=== PATIENT | male | born 1980 | race Caucasian/White ===

== ENCOUNTER 2019-03-06 07:20 | Day surgery (SDC) | payer BC ==
[2019-03-01 13:01] VITALS: BMI 46.1
[~2019-03-06 07:20] MED LIST: LACTATED RINGERS 1,000 ML IV SCH; LIDOCAINE 1% 20 ML VIAL (10MG/ML) FOR IV START INTRADERMA PRN
--- NOTE | 2019-03-06 07:34 | P.GSHP ---
History of Present Illness H&P Date: 03/06/19 CHIEF COMPLAINT: Rectal bleeding HISTORY OF PRESENT ILLNESS: The patient is a 39-year-old male who presents with rectal bleeding. Lower endoscopy was offered for further evaluation and management. PAST MEDICAL HISTORY: Please see list. PAST SURGICAL HISTORY: Please see list. MEDICATIONS: Please see list. ALLERGIES: Please see list. SOCIAL HISTORY: No illicit drug use FAMILY HISTORY: No reports of Crohn disease or ulcerative colitis. REVIEW OF ORGAN SYSTEMS: CONSTITUTIONAL: No reports of fevers or chills. PHYSICAL EXAM: VITAL SIGNS: Stable GENERAL: Well-developed pleasant in no acute distress. HEENT: No scleral icterus. Extraocular movements grossly intact. Moist buccal mucosa. NECK: Supple without lymphadenopathy. CHEST: Unlabored respirations. Equal bilateral excursions. CARDIOVASCULAR: Regular rate and rhythm. Distal 2+ pulses. ABDOMEN: Soft, nontender, nondistended. MUSCULOSKELETAL: No clubbing, cyanosis, or edema. ASSESSMENT: 1. Rectal bleeding PLAN: 1. Recommend proceeding with a lower endoscopy Past Medical History Additional Past Medical History / Comment(s): HX ANAL FISSURE AND HEMORRHOIDS History of Any Multi-Drug Resistant Organisms: None Reported Past Surgical History: Orthopedic Surgery Additional Past Surgical History / Comment(s): ANAL FISSURE SX. EGD. BILAT KNEE SCOPES Past Anesthesia/Blood Transfusion Reactions: No Reported Reaction Smoking Status: Current every day smoker - Past Family History Mother History Unknown: Yes Medications and Allergies Home Medications Medication Instructions Recorded Confirmed Type Polyethylene Glycol 3350 [Miralax] 17 gm PO DAILY 03/01/19 03/01/19 History Allergies Allergy/AdvReac Type Severity Reaction Status Date / Time No Known Allergies Allergy Verified 03/01/19 12:55
[2019-03-06 07:37] VITALS: TEMP 97.8
[2019-03-06] MEDS ORDERED: LACTATED RINGERS 1,000 ML IV ONE (07:37)
[2019-03-06] MEDS ORDERED: PROPOFOL 10 MG/ML 20 ML VIAL IV ONE (07:54)
[2019-03-06] MEDS ORDERED: LIDOCAINE 1% INJ 10MG/ML (20 ML MDV) ONE (07:54)
[2019-03-06 08:19] VITALS: RESP 16
--- NOTE | 2019-03-06 08:19 | P.PCN ---
Date of Procedure: 03/06/19 Description of Procedure: PREOPERATIVE DIAGNOSIS: Rectal bleeding History of anal fissures POSTOPERATIVE DIAGNOSIS: Rectal bleeding History of anal fissures Colitis at ascending colon OPERATION: Colonoscopy to the ileocecal valve and appendiceal orifice. Colonoscopy with cold forceps biopsies ascending colon SURGEON: Jackie Hoffmann MD. ANESTHESIA: MAC. INDICATIONS: The patient is a 39-year-old male who presents with rectal bleeding. Benefits and risks were described and informed consent was obtained. DESCRIPTION OF PROCEDURE: The patient had undergone Suprep. He had been brought into the operating room and laid in the left lateral decubitus position. After adequate intravenous sedation, the rectum was examined with 2% lidocaine jelly. External hemorrhoids were encountered. Retained staple from stapled hemorrhoidectomy identified with small anal fissure. The rectal tone was within normal limits. No lesions were palpated in the rectal vault. An Olympus colonoscope was advanced until the ileocecal valve and appendiceal orifice were clearly viewed. The prep was excellent with clear visualization of the mucosal folds. The scope was removed with visualization of each mucosal fold. No scattered diverticulosis was encountered. No colonic polyps were found. At ascending colon proximal to the hepatic flexure patch of hyperemia was identified and biopsied with cold forceps biopsies. Retroflexion of the scope demonstrated grade 1 internal hemorrhoids without active bleeding or inflammation. The colon was desufflated. The patient had tolerated the procedure well. Withdrawal time was over 6 minutes. FINDINGS: Aronchick preparation quality scale 1 (1-5) Internal hemorrhoids, grade 1 Small anal skin tags/external hemorrhoids from stapled hemorrhoidectomy At ascending colon proximal to the hepatic flexure patch of hyperemia was identified and biopsied with cold forceps biopsies. No arteriovenous malformations. No adenomatous polyps. RECOMMENDATIONS: Lower endoscopy as needed Plan - Discharge Summary Discharge Rx Participant: No New Discharge Prescriptions: No Action Polyethylene Glycol 3350 [Miralax] 17 gm PO DAILY Discharge Medication List Polyethylene Glycol 3350 [Miralax] 17 gm PO DAILY 03/01/19 [History] Follow up Appointment(s)/Referral(s): Jackie Hoffmann MD [STAFF PHYSICIAN] - 03/14/19 Patient Instructions/Handouts: Microscopic Colitis (DC) Discharge Disposition: HOME SELF-CARE
[2019-03-06 08:32] VITALS: BP 112/76; PULSE 60
== END 2019-03-06 09:00 | disposition home or self-care (01) ==
LOC: ORWHC2ENDO 07:20
PROVIDERS: ATTEND Surgery Plastic and Reconstructive Surgery
DX: K62.5 Hemorrhage of anus and rectum (principal); Z87.19 Personal history of other diseases of the digestive system; K64.4 Residual hemorrhoidal skin tags; K64.0 First degree hemorrhoids; F17.200 Nicotine dependence, unspecified, uncomplicated
CPT/HCPCS: 88305; 45380; J2001; J2704

== ENCOUNTER → 2020-09-01 | Outpatient (CLI) | payer BC ==
--- NOTE | 2020-09-01 12:32 | US ---
EXAMINATION TYPE: US abdomen complete DATE OF EXAM: 09/01/2020 COMPARISON: NONE CLINICAL HISTORY: R11.0 nausea, R10.11,R10.30. EXAM MEASUREMENTS: Liver Length: 16.6 cm Gallbladder Wall: 0.3 cm CBD: 0.5 cm Spleen: 15.0 cm Right Kidney: 13.0 x 6.4 x 8.5 cm Left Kidney: 13.6 x 6.9 x 6.4 cm Pancreas: visualized portions wnl Liver: difficult to penetrate Gallbladder: No stones seen Evidence for sonographic Daugherty's sign: No CBD: wnl Spleen: wnl Right Kidney: No hydronephrosis or masses seen Left Kidney: No hydronephrosis or masses seen Upper IVC: wnl Abd Aorta: bifurcation not seen due to bowel gas, otherwise wnl. IMPRESSION: 1. Mild fatty infiltration liver. 2. No acute ultrasound abnormalities in the abdomen
== END | disposition home or self-care (01) ==
LOC: RADUSWWP 10:13
PROVIDERS: ATTEND Family Medicine
DX: K76.0 Fatty (change of) liver, not elsewhere classified (principal)
CPT/HCPCS: 76700

== ENCOUNTER → 2020-09-15 | Outpatient (CLI) | payer BC | END | disposition home or self-care (01) | LOC: LABWHC1 12:49 | PROVIDERS: ATTEND Nurse Practitioner | DX: R19.5 Other fecal abnormalities (principal) | CPT/HCPCS: 82656 ==

== ENCOUNTER 2020-10-05 09:10 | Day surgery (SDC) | payer BC ==
[2020-10-01 11:11] VITALS: BMI 55.7
[~2020-10-05 09:10] MED LIST changes: -LIDOCAINE 1% 20 ML VIAL (10MG/ML) FOR IV START INTRADERMA PRN
[2020-10-05 09:30] VITALS: TEMP 97.7
[2020-10-05] MEDS ORDERED: LIDOCAINE 1% (10MG/ML) FOR IV START INTRADERMA ONE (09:39)
[2020-10-05] MEDS ORDERED: LIDOCAINE 1% INJ 10MG/ML (20 ML MDV) ONE (09:55)
[2020-10-05] MEDS ORDERED: KETAMINE 10 MG/ML 20 ML VIAL ONE (09:55)
[2020-10-05] MEDS ORDERED: PROPOFOL 10 MG/ML 20 ML VIAL IV ONE (09:55)
[2020-10-05] MEDS ORDERED: MIDAZOLAM 2 MG/2 ML VIAL ONE (09:55)
[2020-10-05] MEDS ORDERED: fentaNYL (PF) 50 MCG/ML 2 ML AMP ONE (09:55)
--- NOTE | 2020-10-05 10:16 | P.PCN ---
Date of Procedure: 10/05/20 Description of Procedure: BRIEF HISTORY: Patient is a 40-year-old male presenting for outpatient es ophagogastroduodenoscopy for evaluation of epigastric abdominal pain. Patient reports symptoms of a sharp severe epigastric abdominal pain occurring over the past few months. He reports that a trial of Protonix daily didn't improve symptoms that he had no improvement with dicyclomine. PROCEDURE PERFORMED: Esophagogastroduodenoscopy with biopsy. PREOPERATIVE DIAGNOSIS: Epigastric abdominal pain. ESTIMATED BLOOD LOSS: Minimal. IV sedation per anesthesia. PROCEDURE: After informed consent was obtained, the patient was brought into the endoscopy unit. IV sedation was administered by Anesthesia under continuous monitoring. Initially the Olympus GIF-190 video endoscope was inserted into the mouth. Esophagus intubated without any difficulty. It was gradually advanced into the stomach and duodenum and carefully examined. The bulb and the second part of the duodenum appeared normal, with biopsies taken. The scope at this time was withdrawn to the stomach, adequately insufflated with air, and upon careful examination, mucosa of the antrum, body, cardia and the fundus appeared normal, except for some mild punctate erythema in the antrum and body with biopsies taken. There was also a patchy area of severe gastritis with irritation and superficial erosions in the fundus which was biopsied. The scope was then withdrawn into the esophagus. The GE junction was located at 43, with lower esophageal biopsies cm from the incisors. The esophagus appeared normal. There were no erosions or ulcerations seen and the patient tolerated the procedure well. IMPRESSION: 1. Severe gastritis and a patchy area involving the fundus. 2. Mild gastritis antrum and body. 3. Biopsies of the duodenum, antrum, body, fundus and lower esophagus. RECOMMENDATIONS: The findings of this examination were discussed with the patient . Okay to resume diet. Okay to resume medications. Await pathology from biopsies. Recommend continuing Protonix daily and following up in the clinic for results of other tests.
[2020-10-05 10:17] VITALS: RESP 16
[2020-10-05 10:34] VITALS: BP 136/91; PULSE 77
== END 2020-10-05 10:48 | disposition home or self-care (01) ==
LOC: ORWHC2ENDO 09:10
PROVIDERS: ATTEND Internal Medicine
DX: K21.00 Gastro-esophageal reflux disease with esophagitis, without bleeding (principal); K29.70 Gastritis, unspecified, without bleeding; I10 Essential (primary) hypertension; G47.33 Obstructive sleep apnea (adult) (pediatric); F17.290 Nicotine dependence, other tobacco product, uncomplicated; Z79.899 Other long term (current) drug therapy
CPT/HCPCS: 88305; 43239; J2250; J2001; J3010; J2704

== ENCOUNTER → 2020-11-18 | Outpatient (CLI) | payer BC ==
--- NOTE | 2020-11-18 11:39 | XR ---
EXAMINATION TYPE: XR knee complete LT DATE OF EXAM: 11/18/2020 CLINICAL HISTORY: Left knee pain TECHNIQUE: Three views of the left knee are obtained. COMPARISON: None. FINDINGS: There is no acute fracture/dislocation evident in left knee. The tri-compartment joint sp aces appear within normal limits. The overlying soft tissue appears unremarkable. IMPRESSION: There is no acute fracture or dislocation in the left knee.
== END | disposition home or self-care (01) ==
LOC: RADXRYALE 09:53
PROVIDERS: ATTEND Physician Assistant
DX: M25.562 Pain in left knee (principal)

== ENCOUNTER → 2020-12-08 | Outpatient (CLI) | payer BC ==
--- NOTE | 2020-12-08 18:34 | ECHOF ---
Referral Reason:[id number] MEASUREMENTS -------- HEIGHT: 180.3 cm WEIGHT: 181.4 kg BP: IVSd: 1.5 cm (0.6 - 1.1) LVIDd: 4.7 cm (3.9 - 5.3) LVPWd: 1.4 cm (0.6 - 1.1) EDV(Teich): 101 ml IVSs: 1.8 cm LVIDs: 2.6 cm LVPWs: 2.1 cm %IVS Thck: 23 % ESV(Teich): 25 ml EF(Teich): 75 % %FS: 44 % SV(Teich): 76 ml RVIDd: 2.5 cm (< 3.3) IVC: 14.93 mm LALs A4C: 5.1 cm LAAs A4C: 16.7 cm LAESV A-L A4C: 47 ml LAESV MOD A4C: 41 ml LALs A2C: 5.1 cm LAAs A2C: 14.3 cm LAESV A-L A2C: 34 ml LAESV MOD A2C: 32 ml LAESV(A-L): 40 ml LAESV Index (A-L): 14.12 ml/m Ao Diam: 4.1 cm (2.0 - 3.7) LA Diam: 3.0 cm (2.7 - 3.8) AV Cusp: 1.9 cm (1.5 - 2.6) EPSS: 0.5 cm MV E Jalen: 0.92 m/s MV DecT: 191 ms MV Dec [place]: 4.8 m/s MV A Jalen: 0.83 m/s MV E/A Ratio: 1.11 MV PHT: 55 ms MR Vmax: 1.11 m/s MR maxP.94 mmHg AV Vmax: 1.09 m/s AV maxP.71 mmHg TR Vmax: 1.79 m/s TR maxP.86 mmHg RAP: 5.00 mmHg RVSP: 17.86 mmHg MV EF SLOPE: 92.04 mm/s (70 - 150) MV EXCURSION: 11.80 mm (> 18.000) FINDINGS -------- This was a technically adequate study. The left ventricular size is normal. There is moderate concentric left ventricular hypertrophy. O verall left ventricular systolic function is normal with, an EF between 55 - 60 %. The diastolic fi lling pattern is normal for the age of the patient 11.77. The right ventricle is normal in size. The left atrial size is normal. Normal LA size by volume 22+/-6 ml/m2. The right atrial size is normal. Unable to visualize the septum. The aortic valve is trileaflet and appears structurally normal. The mitral valve is normal. There is trace mitral regurgitation. The tricuspid valve appears structurally normal. Trace tricuspid regurgitation present. Right michael tricular systolic pressure is normal at < 35 mmHg. There is no pulmonic regurgitation present. The aortic root is dilated measuring 4.1 cm. Normal inferior vena cava with normal inspiratory collapse consistent with estimated right atrial pre ssure of 5 mmHg. There is no pericardial effusion. CONCLUSIONS -------- 1. The left ventricular size is normal. 2. There is moderate concentric left ventricular hypertrophy. 3. Overall left ventricular systolic function is normal with, an EF between 55 - 60 %. 4. The diastolic filling pattern is normal for the age of the patient 11.77 5. There is trace mitral regurgitation. 6. Trace tricuspid regurgitation present. 7. The aortic root is dilated measuring 4.1 cm. 8. There is no pericardial effusion. [employer]: Erinn Gross, [facility]
== END | disposition home or self-care (01) ==
LOC: RADECHMAIN 12:05
PROVIDERS: ATTEND Family Medicine
DX: I51.7 Cardiomegaly (principal); I34.0 Nonrheumatic mitral (valve) insufficiency; R60.0 Localized edema
CPT/HCPCS: 93306

== ENCOUNTER → 2021-01-01 | Outpatient (CLI) | payer BC ==
--- NOTE | 2021-01-01 16:44 | US ---
EXAMINATION TYPE: US scrotum with doppler. Grayscale and color Doppler Duplex imaging performed of juventino dockery scrotum. DATE OF EXAM: 01/01/2021 COMPARISON: NONE CLINICAL HISTORY: N508.12 LT TESTICULAR PAIN,N45.1 EPIDIDYMITIS. Left testicular pain noted x 1 week. Does heavy lifting at work. EXAM MEASUREMENTS: TESTICLES: Right Testicle: 4.6 x 2.6 x 2.3 cm Left Testicle: 4.7 x 2.5 x 1.8 cm EPIDIDYMIS HEAD: Right Epididymis: 0.8 x 1.6 x 1.4 cm Left Epididymis: 1.2 x 1.2 x 0.8 cm PW Doppler and Color Flow assessment was performed to assess for testicular vascularity; good bilater al color flow and waveforms are seen. There is no evidence of testicular torsion. Presence of hydroceles: very small amount of fluid noted seen upper left scrotal sac = 1.5 x 0.3 x 0 .2cm. Presence of varicoceles: no IMPRESSION: 1. Minimal left hydrocele. 2. No torsion.
== END | disposition home or self-care (01) ==
LOC: RADUSWWP 08:15
PROVIDERS: ATTEND Family Medicine
DX: N43.3 Hydrocele, unspecified (principal); N45.1 Epididymitis
CPT/HCPCS: 76870; 93975

== ENCOUNTER → 2021-01-13 | Outpatient (CLI) | payer BC ==
--- NOTE | 2021-01-14 05:16 | MR ---
EXAMINATION TYPE: MR knee LT wo con DATE OF EXAM: 01/13/2021 COMPARISON: None HISTORY: Left knee pain x 5 mos, no trauma. Multiplanar multiecho imaging of the left knee with no contrast. There is a large knee joint effusion. The anterior and posterior cruciate ligaments are intact. The p atella is intact. The lateral collateral ligament appears intact. There is some thinning and increased signal in the an terior aspect of the medial collateral ligament. There is mild increased signal in the medial tibial condyle that measures 2 cm and consistent with a bone bruise. There is vertical tear through the posterior horn medial meniscus. There is some medial displacement of the medial meniscus. There is some small intrasubstance tear of the posterior horn of the lateral meniscus. There is a tea r on the superior surface of the anterior horn lateral meniscus. There is osteoarthritic moderate rupa rowing of the medial joint space. There is significant loss of articular cartilage. There is no evide nce of a fracture. IMPRESSION: Moderate knee joint effusion. Osteoarthritic narrowing of the medial joint space with evidence of a m ild bone bruise in the medial tibial condyle. There is extensive horizontal and vertical tear of the posterior horn medial meniscus. There is also intrasubstance tear posterior horn lateral meniscus and tear on the superior surface of the anterior horn lateral meniscus. There is evidence for partial te ar of the medial collateral ligament.
== END | disposition home or self-care (01) ==
LOC: RADMRIMAIN 18:37
PROVIDERS: ATTEND Physician Assistant Medical
DX: S83.282A Other tear of lateral meniscus, current injury, left knee, initial encounter (principal); M25.462 Effusion, left knee; M17.12 Unilateral primary osteoarthritis, left knee; X58.XXXA Exposure to other specified factors, initial encounter

== ENCOUNTER → 2021-07-07 | Outpatient (CLI) | payer BC ==
--- NOTE | 2021-07-07 14:46 | XR ---
EXAMINATION TYPE: XR lumbosacral spine min 4V DATE OF EXAM: 07/07/2021 CLINICAL HISTORY: pain COMPARISON: NONE TECHNIQUE: Frontal, lateral, and oblique images of the lumbar spine are obtained. FINDINGS: There are 5 lumbar type vertebral bodies identified. The lumbar spine shows satisfactory alignment without evidence of acute fracture or dislocation. Vertebral body heights are within normal limits. Disc spaces are well preserved. The overlying soft tissue appears unremarkable. IMPRESSION: No acute fracture or dislocation is seen in the lumbar spine.ICD 10 NO FRACTURE, INITIAL EVALUATION
== END | disposition home or self-care (01) ==
LOC: RADXRYALE 14:18
PROVIDERS: ATTEND Physician Assistant Medical
DX: M54.42 Lumbago with sciatica, left side (principal)
CPT/HCPCS: 72110

== ENCOUNTER → 2022-02-28 | Outpatient (CLI) | payer BC ==
--- NOTE | 2022-02-28 10:02 | FL ---
Exam Date: 02/28/2022 9:27 AM. Modified barium swallow for dysphagia. Consistencies administered: Various consistency of barium. Fluoro time: No images were sent to PACS. Please see speech pathology report.
== END | disposition home or self-care (01) ==
LOC: RADUSWWP 08:52
PROVIDERS: ATTEND Family Medicine
DX: R13.10 Dysphagia, unspecified (principal); K21.00 Gastro-esophageal reflux disease with esophagitis, without bleeding
CPT/HCPCS: 74230

== ENCOUNTER → 2022-02-28 | Outpatient (CLI) | payer BC ==
[2022-02-28 13:26] VITALS: BP 157/97; PULSE 72; RESP 18
--- NOTE | 2022-02-28 15:42 | P.PAINPG ---
PQRS Measure Charge Sheet Comment: HISTORY OF PRESENT ILLNESS: 42 yr old male as a referral from Dr. Alexander presents today w severe and chronic LBP secondary to DDD, spondylosis, facet arthropathy without myelopathy for evaluation. Pt states his pain level is currently at 3/10 in intensity but escalates as high as 8/10 w twisting/ bending. Pain is constant, sharp in character in the lower lumbar spine w burning radiating pain towards the LLE. Pain is alleviated w meds (Tylenol, Naproxen), ice daily, PT which ended Dec 2021, home exercise regimen as tolerated, stretching daily, repositioning and rest. PMH: Hemorrhoids PSH: EGD/ Colonoscopy (2019), BL Knee Scopes SH: Daily tobacco user, No ETOH abuse, No illicit drug use. FH: Non contributory All: NKDA Meds: See list REVIEW OF ORGAN SYSTEMS: CONSTITUTIONAL: No fevers or chills. No recent weight loss. NEUROLOGICAL: + numbness and tingling along the distal extremities. No seizure disorders or headaches. MUSCULOSKELETAL: + pain PSYCHIATRIC: Denies current depression or suicidal thoughts. Physical Examinations : Constitutional : Cooperative , not in acute distress . Neurologic : Cranial nerve II to XII intact. No focal neurological deficits. Psychiatric : alert & oriented x 3. Matching mood & appropriate affect. Judgment & insight intact. Musculoskeletal : Cervical Spine Motor strength in the deltoid and biceps: Normal right side. Normal Left side Motor strength biceps and the wrist extensors: Normal right side . Normal left side Motor strength in the triceps muscle: Normal right side. Normal left side Deep tendon reflexes: Normal at the biceps. Normal at Brachioradialis. Normal at triceps Vertebral body tenderness to deep palpation over Cervical facet loading test: positive bilaterally Spurling test: positive bilaterally Neck distraction test: positive bilaterally Roxi sign: positive bilaterally Lumbar spine Motor strength lower extremities ,thigh and legs 5/5 Right side , 5/5 Left side Deep tendon reflexes : Normal Knee Jerk. Normal Ankle Jerk Vertebral body tenderness over L4 Lumbar facet Loading Test: positive Right / positive Left Range of motion of the lumbar spine Flexion 30 degrees, extension 10 degrees Straight Leg Raise test: Left/ Right positive at degree Blanca test: positive right / positive left. Severe tenderness over the Sacroiliac joint on the Right / Left sides Gaenslen test: positive bilaterally Seated flexion test: positive bilaterally. Sacral spine : Severe tenderness over the Sacroiliac joint: right side / left side Range of motion: Flexion of the lumbar spine <60 degrees Range of motion: Extension of the lumbar spine <20 degrees Gaenslen's Test positive Rich's Test positive Blanca test: positive right side / left side Thigh Thrust Test Sacral Thrust Test Imaging: MRI without contrast of the lumbar spine from 07/17/21 reviewed Assessment/ Plan : Lumbar DDD, lumbar spondylosis Recommendation of CARSON L4-L5. May need a series of injections, up to 3 within a 6 mo period, for optimal pain relief. Risks, benefits of procedure discussed and patient verbalized understanding. Denies aspirin or anti- coagulant use or medical history of diabetes. Protocol for discontinuation/ continuation of medications jayme procedure discussed. All questions answered. I have spent greater than 30 minutes on patient care today. Dr Salazar was available by phone for the evaluation of this patient. The time was used to review the medical records including relevant urine studies and Prescription history (MAPs), review of the available imaging, evaluation and examination of the patient, coordination of care with the medical staff and if applicable referring physicians, as well as creation of the medical record PQRS Narrative: Smoking Status Current every day smoker Home Medications: Ambulatory Orders Pantoprazole Sodium 40 mg PO DAILY 10/01/20 Acetaminophen [Tylenol Extra Strength] 500 mg PO Q12HR PRN 02/28/22 Naproxen Sodium [Naproxen Sodium ER] 500 mg PO DAILY 02/28/22 Controlled Substance Measures - Controlled Substance Measures Is patient prescribed a controlled substance at discharge?: No
== END | disposition home or self-care (01) ==
LOC: PNWHC3 12:59
PROVIDERS: ATTEND Specialist
DX: M47.896 Other spondylosis, lumbar region (principal); M51.36 Other intervertebral disc degeneration, lumbar region
CPT/HCPCS: 99211

== ENCOUNTER 2022-03-29 05:58 | Day surgery (SDC) | payer BC ==
[2022-03-29] MEDS ORDERED: LACTATED RINGERS 1,000 ML IV SCH (06:07)
[2022-03-29] MEDS ORDERED: LIDOCAINE 1% (10MG/ML) FOR IV START INTRADERMA PRN (06:07)
[2022-03-29 06:41] VITALS: TEMP 97.8
[2022-03-29] MEDS ORDERED: methylPREDNISolone ACETATE 80 MG/ML 1 ML VIAL ONE (07:05)
[2022-03-29] MEDS ORDERED: IOPAMIDOL M200 10 ML VIAL ONE (07:05)
--- NOTE | 2022-03-29 07:19 | P.PCN ---
Date of Procedure: 03/29/22 Procedure(s) Performed: PREOPERATIVE DIAGNOSIS: 1- Lumbar Degenerative Disc Diseases 2-Lumbar spondylosis with Facet arthropathy without myelopathy. 3-lumbar radiculopathy POSTOPERATIVE DIAGNOSIS: Same as preop diagnosis. PROCEDURE 1. Lumbar epidural steroid injection under fluoroscopic guidance at the L4-5 level. (Fluoroscopy imaging was available in radiology department) 2. Lumbar epidurogram. ANESTHESIA: Local anesthesia with lidocaine 1% 3 mL only EBL: Minimal PROCEDURE INDICATION: The patient with low back pain and radiculitis symptoms unresponsive to conservative treatment. Fluoroscopy was used to optimize visualization of the needle placement and to maximize safety. PROCEDURE DESCRIPTION / TECHNIQUE: The patient was seen and identified in the preoperative area. Risks, benefits, complications including but not limited to infections ,bleeding ,allergic reaction to the medications ,nerve damage and not complete pain releife , and alternatives were discussed with the patient. The patient agreed to proceed with the procedure and signed the consent. IV was started, and vital signs were stable. Patient was taken to the OR and time out was completed. The patient was placed in the prone position on procedure table and a pillow was placed under the abdomen to reduce lumbar lordosis. The lumbosacral area was prepped and draped in the usual sterile fashion.ere closely monitored during the procedure. Vital signs was monitered during the entire procedure. Using anterior-posterior fluoroscopy, the L4-5 interlaminar space was identified and the skin over this site was marked and then infiltrated with 1% lidocaine subcutaneously. Subsequently, a 18-gauge 6 inches long Tuohy epidural needle was inserted and advanced toward the epidural space using the ``Loss of resistance technique and guided by AP and lateral fluoroscopy. The correct nee dle position in the epidural space was verified with the injection of 2 mL of the water soluble contrast dye Isovue 200 contrast and observing an excellent epidurogram with the epidural spread of the dye, after negative aspiration for blood and CSF and in the absence of paresthesias. Again after negative aspiration, a 6 ml mixture containing 80 mg of Depo-medrol ( Preservetive Free ), and 2 ml of preservative free Normal Saline, and 2 ml of preservative free lidocaine 1% solution was injected and a washout of epidurogram was seen. Needle was withdrawn intact, skin was cleansed, and bandages were applied. COMPLICATIONS: None DISPOSITION / PLANS: The patient was placed in a supine position and transferred to the recovery area in a stable condition for observation. There was no evidence of lower extremity motor or sensory deficit after the procedure. Patient was discharged from the recovery room after meeting discharge criteria. Home discharge instructions were given to the patient by the staff. The patient was reexamined prior to discharge. The patient will schedule a follow up in the clinic in 2-4 weeks.
[2022-03-29 07:36] VITALS: BP 118/79; PULSE 69; RESP 18
--- NOTE | 2022-03-29 09:39 | FL ---
Fluoroscopy INDICATION: Pain FINDINGS: Fluoroscopy time: 2 seconds. Images obtained: One. IMPRESSIONS: 1. Documentation of fluoroscopy.
== END 2022-03-29 07:41 | disposition home or self-care (01) ==
LOC: ORPAIN 05:58
PROVIDERS: ATTEND Specialist
DX: M51.16 Intervertebral disc disorders with radiculopathy, lumbar region (principal); M47.26 Other spondylosis with radiculopathy, lumbar region
CPT/HCPCS: 62323; J1040; Q9966

== ENCOUNTER → 2022-04-13 | Outpatient (CLI) | payer BC ==
[2022-04-13 10:33] VITALS: BP 138/89; PULSE 68; RESP 16; TEMP 98.2
--- NOTE | 2022-04-13 14:41 | P.PAINPG ---
PQRS Measure Charge Sheet Comment: A 42 yr old male with a history of severe and chronic low back pain secondary to lumbar DDD and spondylosis with facet arthropathy without myelopathy presents today for evaluation s/p CARSON L4-5. Pt states he experienced 10% pain relief s/p procedure. Pain level is currently at 9/10 in intensity, constant, localized in the lower lumbar spine, stabbing in character w shooting towards the BLEs, L>R. Pain is provoked by bending and lifting. Pain is alleviated with PT in 2021, heat, home exercise regimen, repositioning and rest. Interventional pain procedures completed include CARSON L4-L5 Patient is currently on Denies Patient denies any side effects of the medication(s), denies excessive drowsiness or sleepiness, denies suicidal ideation and reports that the current pain medication is helping to control the pain and improve activities of daily living. Patient denies any motor or sensory deficits. Patient denies any fever or night sweats, denies any change in the bowel movements or urination. Physical Examination: -Constitutional: Cooperative. Not in acute distress . - Neurologic: Cranial nerve II to XII intact. No focal neurological deficits. - Psychatric: Alert & oriented x 3. Matching mood & appropriate affect. Judgment and insight intact. - Musculoskeletal: Cervical spine: Muscle bulk/ tone/ strength in the bilateral upper extremities normal Vertebral body tenderness to palpation over Spurling test positive Distraction test positive Facet loading test positive Thoracic spine Muscle bulk / tone/ strength in the bilateral paraspinal muscles normal Vertebral body tender to palpation over Facet loading test positive Lumbar spine: Motor bulk/ tone/ strength lower extremities , thigh and legs : 5/5 Deep tendon reflexes : Normal Knee Jerk. Normal Ankle Jerk . Vertebral body tenderness to palpation over Lumbar Facet Loading Test positive TTP over BL L4-L5, L5-S1 facets Straight Leg Raise: positive at 30 degrees right side/ left side Gaenslen's Test positive Sacral spine : Severe tenderness over the Sacroiliac joint: right side / left side Range of motion: Flexion of the lumbar spine <60 degrees Range of motion: Extension of the lumbar spine <20 degrees Gaenslen's Test positive Blanca test: positive right side / left side Thigh Thrust Test Sacral Thrust Test Assessment and plan: Chronic low back pain secondary to lumbar degenerative disc disease, spondylosis with facet arthropathy without myelopathy Recommendation of BL MBB L4-L5, L5-S1 #1. May need a series of injections, up until RFA, for optimal pain relief. Risks, benefits of procedure discussed and pt verbalized understanding. Admits anticoagulant use or medical history of diabetes. Protocol for discontinuation/ continuation of medications jayme procedure discussed. All patient questions answered I have spent less than 30 minutes on patient care today. Dr Salazar was available by phone for the evaluation of this patient. The time was used to review the medical records including relevant urine studies and Prescription history (MAPs), review of the available imaging, evaluation and examination of the patient, coordination of care with the medical staff and if applicable referring physicians, as well as creation of the medical record PQRS Narrative: Smoking Status Current every day smoker Hx Alcohol Use (MH) No Home Medications: Ambulatory Orders No Known Home Medications 03/25/22 Controlled Substance Measures - Controlled Substance Measures Is patient prescribed a controlled substance at discharge?: No
== END ==
LOC: PNWHC3 10:14
PROVIDERS: ATTEND Specialist
DX: M47.816 Spondylosis without myelopathy or radiculopathy, lumbar region (principal); M51.36 Other intervertebral disc degeneration, lumbar region; G89.29 Other chronic pain; Z79.01 Long term (current) use of anticoagulants; E11.9 Type 2 diabetes mellitus without complications; F17.200 Nicotine dependence, unspecified, uncomplicated
CPT/HCPCS: 99211

== ENCOUNTER 2022-05-06 11:46 | Day surgery (SDC) | payer BC ==
[2022-05-05 11:26] VITALS: BMI 51.5
[~2022-05-06 11:46] MED LIST changes: +LIDOCAINE 1% (10MG/ML) FOR IV START INTRADERMA PRN
[2022-05-06 12:15] VITALS: TEMP 98
[2022-05-06] MEDS ORDERED: TRIAMCINOLONE ACETONIDE 40 MG/ML 1 ML VIAL ONE (12:19)
[2022-05-06] MEDS ORDERED: ROPIVACAINE 5 MG/ML 20 ML AMPULE ONE (12:19)
--- NOTE | 2022-05-06 12:39 | P.PCN ---
Date of Procedure: 05/06/22 Description of Procedure: Pre- and Post-operative Diagnosis: Lumbar facet arthropathy, and lumbar spon dylosis without myelopathy. Procedure: #1 Diagnostic Medial Branch Block at bilateral Lumbar 4/5 and #1 diagnostic dorsal ramus block at Lumbar 5/ sacral ala levels (total 4 levels) Surgeon: Bertha Peterson Anesthesia: Local: 1% Lidocaine, IV sedation: None Complications: None EBL: None Specimen removed: None Fluoroscopic image: Saved to patient electronic medical records. Indications for Procedure: The patient is well known to pain clinic for his chronic low back pain management. The lumbar facet loading test was positive wit h a clinical diagnosis of lumbar facet arthropathy. Failed with conservative therapy. Came here for interventional help for better pain relief. Procedure and Findings: The patient was seen and examined. The written informed consent was obtained after explaining the risks, benefits and alternatives of the procedure to the patient. The patient was brought to the procedure room and was placed in the prone position on the operating table table. A pillow was placed under the abdomen to reduce lumbar lordosis. Standard anesthesia monitoring was done through out the procedure. The skin preparation was done with ChloraPrep, and draping was done in usual sterile fashion. Sterile technique was observed throughout the procedure. Under fluoroscopic guidance, right the Lumbar 4, 5 and Sacral ala levels were identified in the AP view. For lumbar L4, and L5 levels the targeting area of superior articular process, and close to the most medial and superior aspect of transverse process identified, marked. 1ml of 1% Lidocaine was used with a 25 gauge needle to achieve adequate local anesthesia of the skin and subcutaneous tissue at each level. A 22 gauge 5 inch spinal needle was placed and advanced targeting area which was close to the most medial and superior aspect of the transverse process. For Lumbar 5/ sacral ala level, fluoroscope was used in the anteroposterior view, and the needle tip was placed at the superior and most medial part of sacral ala close to the superior articular process. A bony contact was obtained and needle tip position was confirmed at anteroposterior view. No paresthesia was noted. A negative aspiration was confirmed. 1 ml solution per level was injected, the block solution containing 5 ml of 0.5% ropivacaine preservative-free solution mixed with 40 MG of Kenalog. The needles were removed intact. Entire procedure repeated on the left side. Lumbar area was cleaned and bandages were applied. Disposition : The patient tolerated the procedure very well. The patient was transferred to the recovery room and remained stable until discharged home. The patient was given detailed discharge instructions for infection, bleeding, and increased pain at the injection site, and was advised to seek immediate medical attention should significant side effects develop. The patient will be scheduled with Pain Clinic within 4 weeks for repeat procedure if it's helpful.
[2022-05-06 12:45] VITALS: RESP 16
[2022-05-06] MEDS ORDERED: LACTATED RINGERS 1,000 ML IV SCH (12:45)
--- NOTE | 2022-05-06 12:49 | FL ---
EXAMINATION TYPE: FL guided pain mgmt statistic DATE OF EXAM: 05/06/2022 CLINICAL HISTORY: Low back pain. TECHNIQUE: Fluoroscopy. COMPARISON: None. FINDINGS: Fluoroscopic guidance was provided during pain relief procedure performed by Dr. Parker . A total of 9 seconds of fluoroscopic time was utilized during the procedure and 4 spot images ar e acquired. Images acquired shows needle localization at several levels in the lumbar spine. IMPRESSION: As Above.
[2022-05-06 12:58] VITALS: BP 114/78; PULSE 79
== END 2022-05-06 13:04 | disposition home or self-care (01) ==
LOC: ORPAIN 11:46
DX: M47.816 Spondylosis without myelopathy or radiculopathy, lumbar region (principal); G89.29 Other chronic pain; F17.200 Nicotine dependence, unspecified, uncomplicated; Z96.653 Presence of artificial knee joint, bilateral
CPT/HCPCS: 64493; 64494; J3301; J2795

== ENCOUNTER → 2022-05-26 | Outpatient (CLI) | payer BC ==
[2022-05-26 11:57] VITALS: BP 159/95; PULSE 69; RESP 18; TEMP 98.4
--- NOTE | 2022-05-26 12:30 | P.PAINPG ---
Subjective Progress Note Date: 05/26/22 Principal diagnosis: Lumbar back pain Mr. Ewing is a 42 -year-old pleasant male came to the [facility] pain clinic for postprocedure evaluation for bilateral lumbar L4-L5, and L5-S1 medial branch block #1. Patient had 100% pain relief for 2 days, later gradually pain is getting more worse on left side compared to right side. After the pain procedure he can able to perform his activities of daily living better, and able to sleep better. Patient describes pain is aching, throbbing, constant type of pain. Pain is radiating to left lower extremity sometimes.. Patient rated pain levels are 6 out of 10 in severity. With the help of medications pain levels are 4-8 out of 10 in severity. Activities making pain worse. Medications, resting, intervention procedures helping in relieving patient's pain. Patient pain some days better than others. Overall activities decreased secondary to pain. Because of the pain sometimes patient is feeling lack of sleep, interest, and energy. Denied any side effects with the medications. Denied any bowel or bladder problems at this time. Patient is not using any walking aids for walking support. Patient denies any suicidal or homicidal ideations intent or plan. Patient denies any auditory or visual hallucinations. Patient denied any red flag symptoms related to pain. Objective - Vital Signs Vital signs: Vital Signs Temp 98.4 F 05/26/22 11:48 Pulse 69 05/26/22 11:48 Resp 18 05/26/22 11:48 BP 159/95 05/26/22 11:48 Pulse Ox 98 05/26/22 11:48 FiO2 Intake & Output 05/25/22 05/26/22 05/26/22 18:59 06:59 18:59 Weight 167.829 kg - Exam General: Well-developed, well-nourished, no acute distress HEENT: Normocephalic, and atraumatic Neck: Supple, no neck swelling Psychiatric: Appropriate mood, and affect NNP: No focal neurological deficits Musculoskeletal: Upper extremity: Normal strength, and range of motion. Sensation grossly intact Lower extremity: Normal strength, and normal range of motion Lumbar spine: Paravertebral tenderness: positive Lumbar facet load test : positive Sacroiliac joint tenderness: Negative Thigh thrust test: Negative Straight leg raising test: Negative [ ] - Constitutional Constitutional Comment(s): 13 point review of symptoms negative except as mentioned in the history of present illness Assessment and Plan Assessment: Lumbar spondylosis without myelopathy Myofascial pain syndrome, and chronic pain syndrome Plan: #1 Diagnoses, prognosis, and multiple treatment options including but not limited to physical therapy, interventional therapy, adjunct medication therapy, narcotic medication, and surgical options were discussed with the patient. And all questions were answered to the patient's satisfaction. #2 treatment plan agreement : Patient was thoroughly discussed regarding the treatment options, alternatives, and importance of exercises as tolerated. Patient clearly understood. #3 Patient was counseled on importance of regular exercise. Patient counseled regarding importance of minimizing the intake of process food, and carbo hydrates. Patient was given information regarding intermittent fasting. #4 investigations: MAPS- reviewed , urine drug test- none #5 diagnostic tests: None #6 consultation : None # 7 interventional procedures: Bilateral lumbar L4-L5, L5-S1 medial branch block #2 . Procedure, complications, alternatives discussed with the patient. #8 medications None from the pain clinic #9 morphine milligrams equivalents dose ( MME) per day: 0 from the pain clinic. # 10 TENS unit's, and percussion massage device #11 disposition: scheduled to follow up with pain clinic in 4 weeks duration. Time with Patient: Less than 30 PQRS Measure Charge Sheet Measure #130: Documentation of Current Meds in Medical Chart: Patient's medications documented in chart Measure #226: Tobacco Use: Screen & Cessation Intervention: Pt not a tobacco user Measure #111: Pneumonia Vaccination: Pneumococcal vaccine NOT administered or previously given Measure #412: Opioid Treatment Agreement: No documentation of signed opioid treatment agreement Measure #408: Opioid Therapy Follow-up Evaluation: Patient had NO f/u eval minimum every 3 months during opioid therapy Measure #317: Preventitive Care & Scrn High Bld Press & F/U: Normal blood pressure, f/u not required Measure #128: Body Mass Index (BMI) Screening & Follow-up: BMI documented ABOVE normal parameters - f/u documented Measure #131: Pain Assessment & Follow-up: Pain positive & plan documented Measure #431: Unhealthy Alcohol Use Preventative Care & Scrn: Patient not identified as an unhealthy alcohol user Mode of Arrival: Ambulatory - Pain Location Bilateral Lower Back Non-Pharmacological Interventions: Heat, Ice, Inactivity, Physical Therapy, Position/Reposition, Sitting, Stretching Pharmacological Interventions: Block, Epidural PQRS Narrative: Smoking Status Current every day smoker Blood Pressure 159/95 Pain Intensity [Bilateral 3 Lower Back] Scale Used Numeric (1 - 10) Hx Alcohol Use (MH) No Home Medications: Ambulatory Orders No Known Home Medications 03/25/22 Controlled Substance Measures - Controlled Substance Measures Is patient prescribed a controlled substance at discharge?: No
== END ==
LOC: PNWHC3 10:14
DX: M47.816 Spondylosis without myelopathy or radiculopathy, lumbar region (principal); M79.10 Myalgia, unspecified site; G89.4 Chronic pain syndrome; F17.200 Nicotine dependence, unspecified, uncomplicated
CPT/HCPCS: 99211

== ENCOUNTER 2022-06-10 11:45 | Day surgery (SDC) | payer BC ==
[2022-06-09 08:28] VITALS: BMI 51.5
[2022-06-10 12:07] VITALS: RESP 16; TEMP 97.9
[2022-06-10] MEDS ORDERED: methylPREDNISolone ACETATE 40 MG/ML 1 ML VIAL ONE (12:24)
[2022-06-10] MEDS ORDERED: ROPIVACAINE 5 MG/ML 20 ML AMPULE ONE (12:24)
--- NOTE | 2022-06-10 12:44 | P.PCN ---
Date of Procedure: 06/10/22 Procedure(s) Performed: PREOPERATIVE DIAGNOSIS : 1- Lumbar spondylosis with Facet Arthropathy without myelopathy . 2- Lumber degenerative disc disease POSTOPERATIVE DIAGNOSIS: 1- Lumbar spondylosis with Facet Arthropathy without myelopathy . 2- Lumber degenerative disc disease PROCEDURE: Diagnostic bilateral L3 , L4 , and L5 medial branch block under fluoroscopy guidance(fluoroscopy images available in the radiology Department ) ( To target the facet joint between bilateral L4-5 , and L5-S1 )# 2nd ANESTHESIA:, Local anesthesia with ropivacaine 0.5% 6 mL only EBL: Minimal COMPLICATION: None PROCEDURE INDICATION: Chronic low back pain secondary to Facet arthropathy unresponsive to conservative treatment. PROCEDURE DESCRIPTION: the patient was seen and identified in the preop holding area , risks and benefits and possible complications of the procedure and alternative were discussed with the patient, and the patient agreed to proceed with the procedure and signed the consent and vital signs monitored during the procedure and fluoroscopy was used to maximize the benefit and accuracy of the needle placement,, patient was taken to the procedure room and placed in prone position vital signs monitored in the back prepped with chlorhexidine X3 then under strict sterile technique using a right oblique fluoroscopy ,the junction of the transverse process and the superior articulating process of the right L3 , L4 , and L5 vertebra which corresponding to the fluoroscopy image of the eye of the Tucker dog on the block side for the medial branches and subsequently , after local infiltration of skin and subcu tissuies with Ropivacaine 0.5 % , one mL at each level ,then 22-gauge 5 inches long Quincke-type needles , 3 needle was used , each one of them placed at the junction of the base of the transverse process and the superior articular process at the appropriate level, and the needle was advanced until the periosteum contacted, needle placement confirmed with AP oblique and lateral view and after appropriate needle placement confirmed, and after negative aspiration for heme and CSF and there was no paresthesia 1-1/2 mL of Ropivacaine 0.5% mixed with 20 mg Depo-Medrol , then half mL injected at each level after negative aspiration the needle subsequently removed and the same procedure repeated for the left side at left side at L3 , L4 and L5 levels. At the end of the procedure and the needles removed and a bandage applied after the skin was cleaned the cleaning solution patient taken to recovery room in stable condition and monitors in the recovery room for 20-30 minutes and discharged home in stable condition after discharge criteria met and patient will follow up with the pain clinic in 2-4 weeks
--- NOTE | 2022-06-10 12:52 | FL ---
Intraoperative/procedural fluoroscopic services were provided for bilateral lumbar facet block. Total fluoroscopy time is 37 seconds with a total of 5 submitted images to PACS. Please see the operative note for further details.
[2022-06-10 12:53] VITALS: BP 129/78; PULSE 76
== END 2022-06-10 13:02 | disposition home or self-care (01) ==
LOC: ORPAIN 11:45
PROVIDERS: ATTEND Specialist
DX: M47.816 Spondylosis without myelopathy or radiculopathy, lumbar region (principal); M51.36 Other intervertebral disc degeneration, lumbar region; G89.29 Other chronic pain
CPT/HCPCS: 64493; 64494; J1030; J2795

== ENCOUNTER → 2022-06-27 | Outpatient (CLI) | payer BC ==
[2022-06-27 10:49] VITALS: BP 135/97; PULSE 81; RESP 18; TEMP 98.6
--- NOTE | 2022-06-27 14:32 | P.PAINPG ---
Objective - Vital Signs Vital signs: Vital Signs Temp 98.6 F 06/27/22 10:38 Pulse 81 06/27/22 10:38 Resp 18 06/27/22 10:38 BP 135/97 06/27/22 10:38 Pulse Ox 98 06/27/22 10:38 FiO2 Intake & Output 06/26/22 06/27/22 06/27/22 18:59 06:59 18:59 Weight 167.829 kg PQRS Measure Charge Sheet Mode of Arrival: Ambulatory Comment: A 42 yr old male w son at side with a history of severe and chronic LBP second dayna to lumbar DDD and spondylosis with facet arthropathy without myelopathy presents today for evaluation s/p BL facet block of the medial branches L4-L5, L5-S1 #2. Pt states he states he experienced 100% x 3 hrs s/p procedure. Pain level is provoked at 8 /10 in intensity w excessive mvmt, constant, localized in the lumbar spine, burning in character w shooting towards the BLEs. Pain is provoked by standing/ walking for periods of 15 min or more. Pain is alleviated with PT x 7 wks in Nov 2021, heat, home stretching activity, repositioning and rest. Interventional pain procedures completed include BL MBB L3-L5 x2 Patient is currently on Denies Patient denies any side effects of the medication(s), denies excessive drowsiness or sleepiness, denies suicidal ideation and reports that the current pain medication is helping to control the pain and improve activities of daily living. Patient denies any motor or sensory deficits. Patient denies any fever or night sweats, denies any change in the bowel movements or urination. Physical Examination: -Constitutional: Cooperative. Not in acute distress . - Neurologic: Cranial nerve II to XII intact. No focal neurological deficits. - Psychatric: Alert & oriented x 3. Matching mood & appropriate affect. Judgment and insight intact. - Musculoskeletal: Cervical spine: Muscle bulk/ tone/ strength in the bilateral upper extremities normal Vertebral body tenderness to palpation over Spurling test positive Distraction test positive Facet loading test positive Thoracic spine Muscle bulk / tone/ strength in the bilateral paraspinal muscles normal Vertebral body tender to palpation over Facet loading test positive Lumbar spine: Motor bulk/ tone/ strength lower extremities , thigh and legs : 5/5 Deep tendon reflexes : Normal Knee Jerk. Normal Ankle Jerk . Vertebral body tenderness to palpation over Lumbar Facet Loading Test positive TTP over BL L4-L5, L5-S1 facets Straight Leg Raise: positive at 30 degrees right side/ left side Gaenslen's Test positive Sacral spine : Severe tenderness over the Sacroiliac joint: right side / left side Range of motion: Flexion of the lumbar spine <60 degrees Range of motion: Extension of the lumbar spine <20 degrees Gaenslen's Test positive Blanca test: positive right side / left side Thigh Thrust Test Sacral Thrust Test Assessment and plan: Chronic LBP secondary to lumbar DDD, spondylosis with facet arthropathy w ithout myelopathy Recommendation of BL RFA L4-L5, L5-S1. Pt received sufficient and substantial pain relief w prior facet blocks of the medial branches. Risks, benefits of procedure discussed and pt verbalized understanding. Denies anticoagulant use or medical history of diabetes. All patient questions answered I have spent less than 30 minutes on patient care today. Dr Salazar was available by phone for the evaluation of this patient. The time was used to review the medical records including relevant urine studies and Prescription history (MAPs), review of the available imaging, evaluation and examination of the patient, coordination of care with the medical staff and if applicable referring physicians, as well as creation of the medical record - Pain Location Bilateral Lower Back Non-Pharmacological Interventions: Heat, Home Exercise, Inactivity, Physical Therapy, Relaxation Technique, Sitting, Stretching Pharmacological Interventions: Block PQRS Narrative: Smoking Status Current every day smoker Blood Pressure 135/97 Pain Intensity [Bilateral 3 Lower Back] Scale Used Numeric (1 - 10) Hx Alcohol Use (MH) No Home Medications: Ambulatory Orders No Known Home Medications 03/25/22 Controlled Substance Measures - Controlled Substance Measures Is patient prescribed a controlled substance at discharge?: No
== END ==
LOC: PNWHC3 10:28
PROVIDERS: ATTEND Specialist
DX: M47.816 Spondylosis without myelopathy or radiculopathy, lumbar region (principal); M51.36 Other intervertebral disc degeneration, lumbar region; G89.29 Other chronic pain; F17.200 Nicotine dependence, unspecified, uncomplicated
CPT/HCPCS: 99211

== ENCOUNTER → 2022-10-10 | Outpatient (CLI) | payer BC ==
--- NOTE | 2022-10-10 16:24 | FL ---
EXAMINATION TYPE: FL barium swallow DATE OF EXAM: 10/10/2022 COMPARISON: None HISTORY: Feels like some get stuck in throat TECHNIQUE: Double air contrast technique was utilized to evaluate the esophagus. FINDINGS: Fluoroscopy time: 35 seconds. DAP: 336.01 Images: 98 Esophagus dilation or caliber and has normal contour the gastroesophageal junction. Gastroesophageal junction opens to normal caliber. No intraluminal or extrarenal defect is evident. In the horizontal drinking position there is incomplete stripping of the esophageal bolus. Secondary contraction was ob served. Minimal tertiary contraction may be present. No reflux could be elicited during this exam. IMPRESSION: 1. Mild Presbyesophagus
== END | disposition home or self-care (01) ==
LOC: RADUSWWP 08:50
PROVIDERS: ATTEND Internal Medicine Gastroenterology
DX: K22.89 Other specified disease of esophagus (principal); K21.9 Gastro-esophageal reflux disease without esophagitis
CPT/HCPCS: 74220

== ENCOUNTER → 2022-10-31 | Outpatient (CLI) | payer BC ==
--- NOTE | 2022-10-31 11:32 | XR ---
EXAMINATION TYPE: XR KUB DATE OF EXAM: 10/31/2022 COMPARISON: NONE HISTORY: Abdominal pain, hematuria. TECHNIQUE: Single supine KUB image of the abdomen is obtained with 2 radiographs FINDINGS: Small bowel demonstrates no evidence for dilatation or air fluid levels. Gas and fecal material is seen in non-distended colon. No convincing evidence for pneumoperitoneum. No unusual calcifications. No definitive renal or ureteral calculi. No definitive pelvic calcificati ons. The lung bases are clear. The osseous structures are intact. Degenerative changes of the thoracic lumbar spine. IMPRESSION: Overall nonobstructive bowel gas pattern. Consider further evaluation with CT abdomen pelvis if there is continued clinical concern.
== END | disposition home or self-care (01) ==
LOC: RADXRYALE 11:12
PROVIDERS: ATTEND Physician Assistant Medical
DX: R10.9 Unspecified abdominal pain (principal); R31.9 Hematuria, unspecified
CPT/HCPCS: 74018